=== PATIENT | female | born 1970 | race Caucasian/White ===

== ENCOUNTER 2024-04-30 06:21 | Emergency (ER) | payer MEDICARE ==
[~2024-04-30] VITALS: Ht 165.1 cm; Wt 75.0 kg
[2024-04-30 06:29] VITALS: O2SAT 99
[2024-04-30 07:00] LABS: BASOPHILS % 0.6 % (0.0-2.0); EOSINOPHILS % 0.8 % (0.0-5.0); HEMATOCRIT. 44.2 % (36.0-48.0); HEMOGLOBIN. 15.2 g/dL (12.0-16.0); MEAN CORPUSCULAR HEMOGLOBIN 33.7 pg (28.0-32.0); MEAN CORPUSCULAR HGB CONC 34.5 g/dL (31.0-37.0); MEAN CORPUSCULAR VOLUME 97.6 fL (81.0-99.0); MONOCYTES % 6.8 % (2.0-8.0); NEUTROPHILS % 71.8 % (40.0-76.0); PLATELET 414 x1000/uL (130-400); RED BLOOD CELL COUNT 4.53 mill/uL (4.2-5.4); RED CELL DISTRIBUTION WIDTH 13.7 % (11.6-14.6); WHITE BLOOD COUNT 6.6 x1000/uL (4.5-11.0)
[2024-04-30 07:13] LABS: CHLORIDE 111 mEq/L (98-107); POTASSIUM 3.9 mEq/L (3.5-5.1); SODIUM 140 mEq/L (136-145)
[2024-04-30 07:14] LABS: CALCIUM 9.4 mg/dL (8.7-10.4); CARBON DIOXIDE 25 mEq/L (21-32)
[2024-04-30 07:19] LABS: CREATININE 0.6 mg/dL (0.6-1.0); GLUCOSE 96 mg/dL (70-105); UREA NITROGEN BLOOD 6 mg/dL (9-23)
[2024-04-30 07:25] LABS: TROPONIN I HIGH SENSITIVITY < 4 ng/L (3.0-34)
[2024-04-30 07:26] LABS: B-HCG QUANTITATIVE < 1 mIU/mL (<3)
[2024-04-30] MEDS ORDERED: IBUP-2030 PO (08:19)
[2024-04-30 08:49] VITALS: BP 119/51; PULSE 79; RESP 18; TEMP 98.2
== END 2024-04-30 09:05 | disposition home or self-care (01) ==
LOC: ER 06:21
DX: N93.8 Other specified abnormal uterine and vaginal bleeding (principal); Z88.0 Allergy status to penicillin
CPT/HCPCS: 36415; 71045; 76830; 76856; 80048; 81025; 84484; 84702; 85025; 86850; 86900; 93005; 99284